=== PATIENT | female | born 1950 | race Caucasian/White ===

== ENCOUNTER 2020-06-27 09:38 | Day surgery (SDC) | payer MEDICARE, MEDICAID, SELFPAY ==
--- NOTE | 2020-06-25 11:56 | PDOC.ANES ---
Date of service: 06/25/20 Time of Service: 12:01 Anesthesia Note Report Anesthesia Note: Record was reviewed for preop evaluation for upcoming cataract surgery. Pt had a ECHO obtained at [facility] on 01/2020 which showed LVEF 25-30% with WMA in the LAD distribution, Moderate-severe MR. She was referred to [facility] for [place]. On 04/2020 she underwent cardiac catheterization which showed CI 2.46, 40% distal LM stenosis, Mild diffuse LAD, 60% ostial, and RCA with mild diffuse dz, and mild pulmonary hypertension. Given her entire cardiac picture she is likely a poor candidate for elective anesthesia her at [facility]. However, given that cataracts can be done without sedation and just as local she was contacted to see if she would be amenable to this. After a brief discussion about risks, benefits, and alternatives she is willing to proceed as a MAC but without sedation for her upcoming cataracts.
[2020-06-27 09:51] VITALS: BP 121/76; PULSE 81; RESP 16; TEMP 36; O2SAT 95
[2020-06-27] MEDS: Tropicam./Phenyleph. (1/2.5%) 5 ML BTL OD ×3 (10:03→10:16)
[2020-06-27] MEDS: Tetracaine 0.5% 4 ML BTL OD (11:21)
[2020-06-27] MEDS: Duovisc Viscoelastic System EACH 1 EACH (11:22)
[2020-06-27] MEDS: Balanced Salt Soln.-PLUS 500 ML BAG (11:22)
[2020-06-27] MEDS: Lidocaine 2% Jelly 6 ML SYR (11:23)
[2020-06-27] MEDS: Lidocaine 1% Pres-Free 5 ML VIAL (11:23)
[2020-06-27] MEDS: Povidone-Iodine Ophth 30 ML BTL (11:25)
--- NOTE | 2020-06-27 11:37 | ROE_ITS ---
Date of service: 06/27/20 Time of Service: 11:38 Operative Note Operative Note DATE OF PROCEDURE: 06/27/20 PRE-OP DIAGNOSIS: Nuclear cataract, right eye POST-OP DIAGNOSIS: same PROCEDURE: Cataract extraction using phacoemulsification with intraocular lens implant, right eye SURGEON: Ritesh Morales ANESTHESIA TYPE: Local By Surgeon and MAC Refer to Anesthesia Record ESTIMATED BLOOD LOSS: 0 PATHOLOGY: none sent COMPLICATIONS: None Patient was transported to: same day Patient's condition: stable Implants: [employer] / [employer] Tecnis ZCB00 intraocular lens Indications: Progressive decreased vision due to cataract, right eye Procedure Description: CATARACT SURGERY OPERATIVE REPORT PREOPERATIVE DIAGNOSIS: Nuclear cataract, right eye POSTOPERATIVE DIAGNOSIS: Same OPERATION: Cataract extraction using phacoemulsification with posterior chamber intraocular lens implant, right eye. IOL: IOL Sustainability Analyst/Model: J[employer]J Vision / TREY Tecnis ZCB00 IOL Power: + 21.5 diopters IOL Serial Number: [id number] Optic Diameter: 6.0mm Haptic/Overall Diameter: 13.0mm PHACO INFO: Luis [employer] Vision System with OZil and Active Fluidics Cumulative Dispersed Energy (CDE): 8.67 seconds SURGEON: Ritesh Morales MD, MARCO ANTONIO ANESTHESIA: Monitored Anesthesia Care (MAC), with local sub-tenon's anesthetic infiltration COMPLICATIONS: None SPECIMENS: None INDICATIONS FOR PROCEDURE: The patient is a 70-year-old lady with history of diminished visual acuity in her right eye. She is noted to have a significant nuclear cataract in the right eye. The option of cataract surgery was offered to the patient and she wished to proceed. PROCEDURE: The correct surgical eye was identified and marked as the right eye and the pupil was dilated in the preoperative area using mydriatics and cycloplegics. The dilated pupil size was 7.0 mm. Oral sedation was administered in the form of an Imprimis MKO Melt (midazolam 3mg/ketamine 25mg/ondansetron 2mg). The patient was brought to the operating room where cardiopulmonary monitoring was instituted and surgical time-out was performed, confirming the correct operative eye and IOL power. Topical anesthesia was administered and ophthalmic povidone-iodine 5% was instilled into the conjunctival fornices. Lidocaine gel was applied to the cornea and the varsha-ocular area was prepped with Betadine 10% solution and draped in the usual sterile fashion for intraocular surgery, including an aperture drape. A Tegaderm transparent film dressing was cut in half and used to cover the lashes and lid margins. Care was taken to sequester the lashes and lid margins under the Tegaderm dressing. A lid speculum was placed between the lids of the operative eye and the Jas-Rupert operating microscope was maneuvered into position. Keith scissors were then used to make a conjunctival buttonhole approximately 6mm posterior to the limbus in the inferonasal quadrant. Blunt dissection was carried out to expose bare sclera, and a blunt-tipped sub-tenon?s anesthesia cannula was introduced and passed posteriorly along the globe where non- preserved plain lidocaine was injected into posterior sub-Tenon?s space. A sideport knife was used to make a paracentesis port inferiortemporally. Intraocular phenylephrine/lidocaine was injected into the anterior chamber. The anterior chamber was then filled with viscoelastic. A 2.4mm keratome knife was used to create a half-thickness groove at the limbus and then to construct a three-plane near-clear corneal tunnel extending 2.0mm into clear cornea in the superiortemporal position. . A flap was raised on the anterior capsule and capsulorhexis forceps were used to complete a continuous curvilinear capsulorhexis of 5.5 mm. Balanced salt solution was then used to perform cortical cleaving hyd rodissection and nuclear hydrodelineation until the lens could be freely rotated within the capsular bag. The lens nucleus was then disassembled and removed within the capsular bag and iris plane using phacoemulsification. Residual cortical material was removed using the I/A handpiece. The posterior capsule was carefully polished to remove as much residual lens epithelial cells as safely possible. The capsular bag was then inflated and the anterior chamber deepened with viscoelastic. The lens implant described above was inserted into the capsular bag using the TREY [place] Injector. A Kuglen hook was used to dial the IOL into position. Residual viscoelastic was then removed first from posterior to the IOL, then from the anterior chamber using the I/A handpiece. The lens implant was noted to center nicely within the capsular bag. The incisions were stromally hydrated, and the anterior chamber was reformed using BSS. Then 0.5cc of moxifloxacin 1.0mg/ml were injected into the capsular bag and anterior chamber. The incisions were checked with a Weck spear and found to be secure. Several drops of ophthalmic povidone-iodine 5% were then applied to the eye followed by two drops of Imprimis combination prednisolone/moxifloxacin/nepafenac solution. The drapes were removed and a clear plastic protective eye shield was placed over the eye. The patient was then returned to [facility] Surgery in stable condition.
--- NOTE | 2020-06-27 11:37 | W.PM.DSUDISC ---
Discharge Plan Disposition Patient Disposition: HOME Condition: Good Discharge Details Attending Provider: Ritesh Morales Primary Care Provider: Casie Yang Home Meds and New Rx's Prescriptions: No Action carvedilol 6.25 mg Tablet 6.25 mg PO BID RF: 0 ipratropium-albuterol 0.5 mg-3 mg(2.5 mg base)/3 mL Solution For Nebulization 3 ml INHALATION Q6H PRNRF: 0 aspirin 81 mg Capsule,Delayed Release(Dr/Ec) 81 mg PO DAILY RF: 0 meclizine 25 mg Tablet 25 mg PO TID PRNRF: 0 benzonatate [Tessalon Perles] 100 mg Capsule 100 mg PO TID PRNRF: 0 fluoxetine 10 mg Capsule 10 mg PO DAILY RF: 0 lisinopril 5 mg Tablet 5 mg PO DAILY RF: 0 furosemide 20 mg Tablet 40 mg PO DAILY RF: 0 albuterol 90 mcg/actuation Aerosol 90 mcg INHALATION Q4H PRNRF: 0 ipratropium bromide 0.02 % Solution 2.5 ml inhalation QID PRNRF: 0 Restasis 0.05 % Dropperette 1 drp ophthalmic (eye) BID RF: 0 Anoro Ellipta 62.5-25 mcg/actuation Blister With Device 1 ea INHALATION DAILY RF: 0 Breo Ellipta 200-25 mcg/dose Blister With Device 1 inh INHALATION DAILY RF: 0 Discharge Instructions Stand Alone Forms: Post-op Topical Cataract, Tere Morales (DSU) Discharge Orders Discharge Orders: Discharge Order (Routine); Ordered 06/27/20 Ordered By: Ritesh Morales DS: Diagnosis Discharge Diagnosis (1) Nuclear sclerotic cataract of right eye: Status: Resolved (2) Nuclear sclerotic cataract of left eye: Status: Resolved
== END 2020-06-27 12:07 | disposition home or self-care (01) ==
PROVIDERS: PCP Internal Medicine; Visit Provider Ophthalmology
PROC: (CPT 66984; principal; 2020-06-27 12:30)
DX: H25.11 Age-related nuclear cataract, right eye (principal); J44.9 Chronic obstructive pulmonary disease, unspecified; I10 Essential (primary) hypertension
CPT/HCPCS: 66984; V2632

== ENCOUNTER 2020-07-11 08:15 | Day surgery (SDC) | payer MEDICARE, SELFPAY ==
[2020-07-11] MEDS: Tropicam./Phenyleph. (1/2.5%) 5 ML BTL OS ×3 (08:31→08:50)
[2020-07-11 08:38] VITALS: BP 116/73; PULSE 74; RESP 16; TEMP 36.2; O2SAT 95
[2020-07-11] MEDS: Tetracaine 0.5% 4 ML BTL OS (09:38)
[2020-07-11] MEDS: Lidocaine 2% Jelly 6 ML SYR (09:38)
[2020-07-11] MEDS: Povidone-Iodine Ophth 30 ML BTL (09:39)
[2020-07-11] MEDS: Lidocaine 1% Pres-Free 5 ML VIAL (09:45)
[2020-07-11] MEDS: Balanced Salt Soln.-PLUS 500 ML BAG (09:49)
[2020-07-11] MEDS: Duovisc Viscoelastic System EACH 1 EACH (09:49)
--- NOTE | 2020-07-11 10:11 | W.PM.DSUDISC ---
Discharge Plan Disposition Patient Disposition: HOME Condition: Good Discharge Details Attending Provider: Ritesh Morales Primary Care Provider: Casie Yang Home Meds and New Rx's Prescriptions: No Action carvedilol 6.25 mg Tablet 6.25 mg PO BID RF: 0 ipratropium-albuterol 0.5 mg-3 mg(2.5 mg base)/3 mL Solution For Nebulization 3 ml INHALATION Q6H PRNRF: 0 aspirin 81 mg Capsule,Delayed Release(Dr/Ec) 81 mg PO DAILY RF: 0 meclizine 25 mg Tablet 25 mg PO TID PRNRF: 0 benzonatate [Tessalon Perles] 100 mg Capsule 100 mg PO TID PRNRF: 0 fluoxetine 10 mg Capsule 10 mg PO DAILY RF: 0 lisinopril 5 mg Tablet 5 mg PO DAILY RF: 0 furosemide 20 mg Tablet 40 mg PO DAILY RF: 0 albuterol 90 mcg/actuation Aerosol 90 mcg INHALATION Q4H PRNRF: 0 ipratropium bromide 0.02 % Solution 2.5 ml inhalation QID PRNRF: 0 Restasis 0.05 % Dropperette 1 drp ophthalmic (eye) BID RF: 0 Anoro Ellipta 62.5-25 mcg/actuation Blister With Device 1 ea INHALATION DAILY RF: 0 Breo Ellipta 200-25 mcg/dose Blister With Device 1 inh INHALATION DAILY RF: 0 Discharge Instructions Stand Alone Forms: Post-op Topical Cataract, Tere Morales (DSU) Discharge Orders Discharge Orders: Discharge Order (Routine); Ordered 07/11/20 Ordered By: Ritesh Morales DS: Diagnosis Discharge Diagnosis (1) Nuclear sclerotic cataract of left eye: Status: Resolved
--- NOTE | 2020-07-11 10:12 | W.PM.OP ---
Date of service: 07/11/20 Time of Service: 10:12 Operative Note Operative Note DATE OF PROCEDURE: 07/11/20 PRE-OP DIAGNOSIS: Nuclear cataract, left eye, symptomatic POST-OP DIAGNOSIS: same PROCEDURE: Cataract extraction using phacoemulsification with intraocular lens implant, left eye SURGEON: Ritesh Morales ANESTHESIA TYPE: Local By Surgeon and MAC Refer to Anesthesia Record PATHOLOGY: none sent COMPLICATIONS: None Patient was transported to: same day Patient's condition: stable Implants: [employer] / [employer] Tecnis ZCB00 Indications: Progressive decreased vision due to cataract, left eye Procedure Description: CATARACT SURGERY OPERATIVE REPORT PREOPERATIVE DIAGNOSIS: Nuclear cataract, left eye, symptomatic POSTOPERATIVE DIAGNOSIS: Same OPERATION: Cataract extraction using phacoemulsification with posterior chamber intraocular lens implant, left eye. IOL: IOL Film Waxer/Model: J&J Vision / TREY Tecnis ZCB00 IOL Power: + 22.0 diopters IOL Serial Number: [id number] Optic Diameter: 6.0mm Haptic/Overall Diameter: 13.0mm PHACO INFO: Luis [employer] Vision System with OZil and Active Fluidics Cumulative Dispersed Energy (CDE): 7.61 seconds SURGEON: Ritesh Morales MD, MARCO ANTONIO ANESTHESIA: Monitored Anesthesia Care (MAC), with local sub-tenon's anesthetic infiltration COMPLICATIONS: None SPECIMENS: None INDICATIONS FOR PROCEDURE: Patient is a 70-year-old lady with history of diminished visual acuity in both eyes secondary to the development of bilateral nuclear cataract. She has already undergone cataract surgery in the right eye and is doing well postoperatively. She now presents for cataract surgery in the left eye. PROCEDURE: The correct surgical eye was identified and marked as the left eye and the pupil was dilated in the preoperative area using mydriatics and cycloplegics. The dilated pupil size was 7.0 mm. She elected to proceed without sedation. The patient was brought to the operating room where cardiopulmonary monitoring was instituted and surgical time-out was performed, confirming the correct operative eye and IOL power. Topical anesthesia was administered and ophthalmic povidone-iodine 5% was instilled into the conjunctival fornices. Lidocaine gel was applied to the cornea and the varsha-ocular area was prepped with Betadine 10% solution and draped in the usual sterile fashion for intraocular surgery, including an aperture drape. A Tegaderm transparent film dressing was cut in half and used to cover the lashes and lid margins. Care was taken to sequester the lashes and lid margins under the Tegaderm dressing. A lid speculum was placed between the lids of the operative eye and the Jas-Rupert operating microscope was maneuvered into position. Keith scissors were then used to make a conjunctival buttonhole approximately 6mm posterior to the limbus in the inferonasal quadrant. Blunt dissection was carried out to expose bare sclera, and a blunt-tipped sub-tenon?s anesthesia cannula was introduced and passed posteriorly along the globe where non-preserved plain lidocaine was injected into posterior sub-Tenon?s space. A sideport knife was used to make a paracentesis port superior/superiortemporally. Intraocular phenylephrine/lidocaine was injected into the anterior chamber. The anterior chamber was then filled with viscoelastic. A 2.4mm keratome knife was used to create a half-thickness groove at the limbus and then to construct a three-plane near-clear corneal tunnel extending 2.0mm into clear cornea in the temporal position. . A flap was raised on the anterior capsule and capsulorhexis forceps were used to complete a continuous curvilinear capsulorhexis of 5.0 mm. Balanced salt solution was then used to perform cortical cleaving hydrodissection and nuclear hydrodelineation until the lens could be freely rotated within the capsular bag. The lens nucleus was then disassembled and removed within the capsular bag and iris plane using phacoemulsification. Residual cortical material was removed using the 45-degree angled silicone I/A tip with 0.3mm port. The posterior capsule was carefully polished to remove as much residual lens epithelial cells as safely possible. The capsular bag was then inflated and the anterior chamber deepened with viscoelastic. The lens implant described above was inserted into the capsular bag using the TREY [place] Injector. A Kuglen hook was used to dial the IOL into position. Residual viscoelastic was then removed first from posterior to the IOL, then from the anterior chamber using the I/A handpiece. The lens implant was noted to center nicely within the capsular bag. The incisions were stromally hydrated, and the anterior chamber was reformed using BSS. Then 0.5cc of moxifloxacin 1.0mg/ml were injected into the capsular bag and anterior chamber. The incisions were checked with a Weck spear and found to be secure. Several drops of ophthalmic povidone-iodine 5% were then applied to the eye followed by two drops of Imprimis combination prednisolone/moxifloxacin/nepafenac solution. The drapes were removed and a clear plastic protective eye shield was placed over the eye. The patient was then returned to Same Day Surgery in stable condition.
== END 2020-07-11 10:36 | disposition home or self-care (01) ==
PROVIDERS: PCP Internal Medicine; Visit Provider Ophthalmology
PROC: (CPT 66984; principal; 2020-07-11 10:30)
DX: H25.12 Age-related nuclear cataract, left eye (principal); Z96.1 Presence of intraocular lens; Z98.41 Cataract extraction status, right eye; I10 Essential (primary) hypertension
CPT/HCPCS: 66984; V2632

== ENCOUNTER 2024-03-14 08:13 | Outpatient (CLI) | payer OTHER, SELFPAY ==
--- NOTE | 2024-03-14 08:00 | RT.EKG_ITS ---
APPROVED REPORT Exam: Resting ECG Reason for Exam: CAD Patient Location: O HR:70 bpm ECG Measurements Heart Rate 70 AXIS OR 124 P 81 QRSd 150 QRS 18 QT 464 T 236 QTc 501 Conclusion Atrial-sensed ventricular-paced rhythm...ventricular pacing tracks p-waves No further analysis attempted due to paced rhythm
== END 2024-03-14 08:14 | disposition home or self-care (01) ==
LOC: DI.CARD 08:14
PROVIDERS: PCP Internal Medicine; Visit Provider Internal Medicine Cardiovascular Disease
DX: Z95.810 Presence of automatic (implantable) cardiac defibrillator (principal); I25.10 Atherosclerotic heart disease of native coronary artery without angina pectoris
CPT/HCPCS: 93010

== ENCOUNTER → 2024-03-14 14:34 | Outpatient (BNVA) | payer OTHER, SELFPAY | PROVIDERS: PCP Internal Medicine; Referring Provider Internal Medicine; Visit Provider Internal Medicine Cardiovascular Disease | DX: Z95.810 Presence of automatic (implantable) cardiac defibrillator (principal) | CPT/HCPCS: 93284 ==

== ENCOUNTER → 2024-10-10 14:15 | Outpatient (BNVA) | payer MEDICARE, MEDICAID, SELFPAY | PROVIDERS: PCP Internal Medicine; Referring Provider Internal Medicine; Visit Provider Registered Nurse | DX: Z79.02 Long term (current) use of antithrombotics/antiplatelets (principal); Z45.02 Encounter for adjustment and management of automatic implantable cardiac defibrillator | CPT/HCPCS: 93283 ==